=== PATIENT | female | born 1960 | race Caucasian/White ===

== ENCOUNTER 2019-12-15 09:33 | Emergency (ER) | payer BC ==
[2019-12-15 10:16] LABS: ABS Eosinophils 0.2 10^3/ul (0-0.6); ABS Lymphocytes 1.6 10^3/ul (1.0-4.8); ABS Monocytes 0.5 10^3/ul (0-0.8); ABS Neutrophils 5.2 10^3/ul (1.5-7.7); Eosinophil % 2.8 %; Hematocrit 40 % (35-47); Hemoglobin 14.6 g/dL (12.0-16.0); Lymphocyte % 21.2 %; Mean Corpuscular HGB Conc 36 g/dL (31-36); Mean Corpuscular Hemoglobin 33 pg (27-31); Mean Corpuscular Volume 90 fL (80-97); Mean Platelet Volume 8.9 fL (7.4-10.4); Nucleated Red Blood Cells % 0.1; Platelet Count 240 10^3/uL (150-450); Red Blood Count 4.46 10^6 /uL (3.70-4.87); Red Cell Distribution Width 13 % (10-15); White Blood Count 7.5 10^3/uL (3.5-10.8)
--- NOTE | 2019-12-15 10:30 | ED ---
Abdominal Pain/Female - HPI Summary HPI Summary: This pt is a 59 Y/O F w hx Aurelia-en-Y in 2013, presenting to [facility] with a CC of abdominal pain that has been present for the past couple weeks. She states that she has been having a decrease in appetite since the onset and lost 10 pounds. She states that she has also been constipated and has need laxatives to void. She sates that she is also nauseous and has had hemorrhoids 2/2 constipation. She denies any fevers, headaches, SOB, and CP. She states that she has a PMHx of obstructions and has needed surgeries in the past (obstruction 2015). She states that her symptoms feel very similar to her previous obstructions. - History of Current Complaint Chief Complaint: Adore Stated Complaint: ABDOMINAL PAIN PERPT Time Seen by Provider: 12/15/19 09:41 Hx Obtained From: Patient Onset/Duration: Lasting Weeks Timing: Constant Severity Initially: Mild Severity Currently: None Pain Intensity: 0 Pain Scale Used: 0-10 Numeric Location: Diffuse Radiates: No Aggravating Factor(s): Nothing Alleviating Factor(s): Nothing Associated Signs and Symptoms: Positive: Negative - headaches, SOB, Diaphoresis , Constipation, Decreased Appetite, Nausea, Other: - hemorrhoids. Negative: Fever, Chest Pain, Vomiting Allergies/Adverse Reactions: Allergies Allergy/AdvReac Type Severity Reaction Status Date / Time nitrofurantoin Allergy Severe Difficulty Verified 12/15/19 13:01 Breathing amoxicillin Allergy Intermediate Hives Verified 12/15/19 13:01 clavulanic acid Allergy Intermediate Hives Verified 12/15/19 13:01 moxifloxacin Allergy Intermediate Hives Verified 12/15/19 13:01 PMH/Surg Hx/FS Hx/Imm Hx Endocrine/Hematology History: Reports: Hx Diabetes Cardiovascular History: Reports: Hx Hypercholesterolemia, Hx Hypertension, Other Cardiovascular Problems/Disorders - CHOLESTEROL ELEVATED NOT PRESENTLY TAKING MEDICATION Respiratory History: Reports: Hx Sleep Apnea - started CPAP 04/2013 GI History: Reports: Hx Gastroesophageal Reflux Disease - ON MEDICATION History: Denies: Hx Renal Disease Musculoskeletal History: Reports: Hx Arthritis - LEFT FOOT Sensory History: Reports: Hx Contacts or Glasses Denies: Hx Hearing Aid Opthamlomology History: Reports: Hx Contacts or Glasses - Cancer History Hx Chemotherapy: No Hx Radiation Therapy: No - Surgical History Surgery Procedure, Year, and Place: Bariatric surgery 2/4/14 [facility], 1984 , tubal ligation 1984, 4 reconstructive L foot surgeries Hx Anesthesia Reactions: No Infectious Disease History: No Infectious Disease History: Denies: Traveled Outside the [place] in Last 30 Days - Family History Known Family History: Positive: Cardiac Disease, Hypertension, Diabetes - Social History Alcohol Use: Rare Hx Substance Use: No Substance Use Type: Reports: None Hx Tobacco Use: Yes Smoking Status (MU): Former Smoker Type: Cigarettes Amount Used/How Often: 1 PPD Length of Time of Smoking/Using Tobacco: 15 YEARS Have You Smoked in the Last Year: No Review of Systems Positive: Chills, Skin Diaphoresis. Negative: Fever Negative: Chest Pain Negative: Shortness Of Breath Positive: Abdominal Pain, Nausea, Other - constipation . Negative: Vomiting Neurological: Other - decreased appetite Positive: Headache All Other Systems Reviewed And Are Negative: Yes Physical Exam - Summary Physical Exam Summary: Constitutional: Well-developed, Well-nourished, Alert. (-) Distressed Skin: Warm, Dry HENT: Normocephalic; Atraumatic Eyes: Conjunctiva normal Neck: Musculoskeletal ROM normal neck. (-) JVD, (-) Stridor, (-) Nuchal rigidity Cardio: Rhythm regular, rate normal, Heart sounds normal; Intact distal pulses; Radial pulses are 2+ and symmetric. (-) Murmur Pulmonary/Chest wall: Effort normal. (-) Respiratory distress, (-) Wheezes, (-) Rales Abd: Soft, (-) tenderness, Mild abdominal distension (-) Guarding, (-) Rebound Musculoskeletal: (-) Edema Lymph: (-) Cervical adenopathy Neuro: Alert, Oriented x3 Psych: Mood and affect Normal Triage Information Reviewed: Yes Vital Signs On Initial Exam: Initial Vitals Temp Pulse Resp BP Pulse Ox 96.6 F 98 18 150/97 100 12/15/19 09:34 12/15/19 09:34 12/15/19 09:34 12/15/19 09:34 12/15/19 09:34 Vital Signs Reviewed: Yes Procedures - Sedation Patient Received Moderate/Deep Sedation with Procedure: No Diagnostics - Vital Signs Vital Signs Temp Pulse Resp BP Pulse Ox 12/15/19 10:02 79 119/86 96 12/15/19 09:34 96.6 F 98 18 150/97 100 - Laboratory Lab Results: Lab Results 12/15/19 Range/Units 09:55 WBC 7.5 (3.5-10.8) 10^3/uL RBC 4.46 (3.70-4.87) 10^6 /uL Hgb 14.6 (12.0-16.0) g/dL Hct 40 (35-47) % MCV 90 (80-97) fL MCH 33 H (27-31) pg MCHC 36 (31-36) g/dL RDW 13 (10-15) % Plt Count 240 (150-450) 10^3/uL MPV 8.9 (7.4-10.4) fL Neut % (Auto) 69.1 % Lymph % (Auto) 21.2 % [place] % (Auto) 6.3 % Eos % (Auto) 2.8 % Baso % (Auto) 0.6 % Absolute Neuts (auto) 5.2 (1.5-7.7) 10^3/ul Absolute Lymphs (auto) 1.6 (1.0-4.8) 10^3/ul Absolute Monos (auto) 0.5 (0-0.8) 10^3/ul Absolute Eos (auto) 0.2 (0-0.6) 10^3/ul Absolute Basos (auto) 0.0 (0-0.2) 10^3/ul Absolute Nucleated RBC 0.0 10^3/ul Nucleated RBC % 0.1 Result Diagrams: 12/15/19 09:55 12/15/19 09:55 Lab Statement: Any lab studies that have been ordered have been reviewed, and results considered in the medical decision making process. - CT CT A/P CT Interpretation Completed By: Radiologist Summary of CT Findings: No evidence of bowel obstruction is noted. No abnormal masses or fluid. collections are noted. ED physician has reviewed this report. Re-Evaluation - Re-Evaluation First Eval Re-Evaluation Time: : Change: Improved - d/w patient negative CT scan. She reports pain dec and tolerating PO. Will follow up with Dr. Itzel LEDEZMA Abdominal Pain Fem Course/Dx - Course Course Of Treatment: 59 y/o F w hx gastric bypass p/w abdominal pain. - patient concerned with obstruction, abd mildly distendend, plan to check CT abd/ pelvis. - Diagnoses Provider Diagnoses: Generalized abdominal pain, Constipation - Provider Notifications Discussed Care Of Patient With: Rex Robbins Time Discussed With Above Provider: 10:29 Instructed by Provider To: Other - Dr. Robbins, Pneumatic Tool Operator, agrees with the decision for CT. Discharge ED - Sign-Out/Discharge Documenting (check all that apply): Patient Departure - discharge - Discharge Plan Condition: Stable Disposition: HOME Prescriptions: Docusate CAP* [Colace Cap*] 100 mg PO BID 30 Days #60 cap Patient Education Materials: Constipation (ED), Acute Abdominal Pain (ED), Gas and Bloating (ED) Referrals: Penny Monk MD [Primary Care Provider] - 2 Days Additional Instructions: You were seen in the emergency department for abdominal pain. Your CT scan did not show any evidence of obstruction. He can take Colace twice a day for constipation Please follow up with your primary care doctor in next 2-3 days and return to emergency department for vomiting, inability to eat or drink, worsening or concerning symptoms. It was a pleasure taking care of you today. - Billing Disposition and Condition Condition: STABLE Disposition: Home - Attestation Statements Document Initiated by Scribe: Yes Documenting Scribe: Jeffery Puente Provider For Whom Scribe is Documenting (Include Credential): Joyce Thompson MD Scribe Attestation: Jeffery Xiao, scribed for Joyce Thompson MD on 12/15/19 at 1329. Scribe Documentation Reviewed: Yes Provider Attestation: The documentation as recorded by the Jeffery garza accurately reflects the service I personally performed and the decisions made by Joyce forbes MD Status of Scribe Document: Viewed
[2019-12-15 10:40] LABS: Albumin 4.3 g/dL (3.2-5.2); Albumin/Globulin Ratio 1.7 (1-3); BUN/Creatinine Ratio 17.1 (8-20); Calcium 10.2 mg/dL (8.6-10.3); EGFR African American 64.9 (>60); EGFR Non-African American 53.6 (>60); Globulin 2.5 g/dL (2-4); Potassium 4.3 mmol/L (3.5-5.0); Total Bilirubin 0.6 mg/dL (0.2-1.0); Total Protein 6.8 g/dL (6.4-8.9)
[2019-12-15] MEDS ORDERED: Iodixanol* (CONTRAST) 320 MG/ML 100 ML SDV IV ONE (12:43)
[2019-12-15 13:45] VITALS: BP 119/82
== END 2019-12-15 13:46 | disposition home or self-care (01) ==
LOC: ED 09:33
DX: R10.84 Generalized abdominal pain (principal); K59.00 Constipation, unspecified; R11.0 Nausea; E11.9 Type 2 diabetes mellitus without complications; Z79.84 Long term (current) use of oral hypoglycemic drugs; I10 Essential (primary) hypertension; E78.00 Pure hypercholesterolemia, unspecified; G47.30 Sleep apnea, unspecified; K21.9 Gastro-esophageal reflux disease without esophagitis; Z79.82 Long term (current) use of aspirin; Z98.84 Bariatric surgery status; Z88.1 Allergy status to other antibiotic agents; Z88.0 Allergy status to penicillin; Z87.891 Personal history of nicotine dependence
CPT/HCPCS: 36415; 74177; 80053; 85025; 99283; Q9967